=== PATIENT | female | born 1950 | race Caucasian/White ===

== ENCOUNTER 2021-12-12 22:20 | Inpatient (IN) | payer MEDICARE ==
[~2021-12-12] VITALS: Ht 172.7 cm; Wt 94.8 kg
--- NOTE | 2021-12-12 21:30 | NUR ---
RECEIVED PATIENT FROM [facility] DIRECT ADMISSION FOR ARU. PATIENT IS A/O X. UPON ARRIVAL TO THE FLOOR, PATIENT NOTED WITH TEMPERATURE OF 101.3 AND HEART RATE 118. PATIENT C/O DISCOMFORT TO RIGHT LEG, BUT DENIES THE NEEDS FOR PAIN MEDICATION AT THIS TIME. ORIENTED PATIENT TO ROOM AND CALL LIGHT. CALL LIGHT IN REACH. ALL NEEDS ATTENDED. WILL CONTINUE TO MONITOR AND ASSESS.
[2021-12-12 22:00] VITALS: BP 140/77
--- NOTE | 2021-12-12 22:00 | NUR ---
TALAT REEDER, ASSISTANT TO THE VICE PRESIDENT FINANCIAL SERVICES CONSULTANT. CALLED OUT TO NOTIFY ASSISTANT TO THE VICE PRESIDENT THAT WE ARE WAITING FOR THE ER CLERKS TO REGISTER PATIENT. INFORMED ASSISTANT TO THE VICE PRESIDENT THAT PATIENT HAS A FEVER AND INCREASED HEART RATE. RECEIVED VERBAL ORDERS, WAITING FOR REGISTRATION TO BE COMPLETE SO MEDS/ORDERS CAN BE INPUT INTO [facility]. ALL NEEDS ATTENDED.
--- NOTE | 2021-12-12 22:20 | NUR ---
PATIENT STILL NOT IN SYSTEM. CALLED OUT TO NURSING INFORMATION RESOURCES MANAGER TO INFORM THAT PATIENT IS NOT REGISTERED AND NEEDS MEDICATIONS.
[2021-12-12] MEDS ORDERED: TRIA1TAB5 PO (23:07)
[2021-12-12] MEDS ORDERED: DOCU-141 PO (23:07)
[2021-12-12] MEDS ORDERED: ENOX40DI SQ (23:07)
[2021-12-12] MEDS ORDERED: HYDR-3972 PO (23:07)
[2021-12-12] MEDS ORDERED: SENN-18 PO (23:07)
[2021-12-12] MEDS ORDERED: PANT40TA2 PO (23:07)
[2021-12-12] MEDS ORDERED: FLUT16SP BNOSTRILS (23:07)
[2021-12-12] MEDS ORDERED: CEPH500T PO (23:07)
[2021-12-12] MEDS ORDERED: MONT10TA22 PO (23:07)
[2021-12-12] MEDS ORDERED: IV NS 1000 ML 1,000 ML IV PRN (23:15)
[2021-12-12] MEDS ORDERED: CEFTRIAXONE 1 G in IV DEXTROSE 5% 50 ML IV SCH (23:15)
[2021-12-12] MEDS ORDERED: IV NORMAL SALINE 500 ML IV ONE (23:15)
[2021-12-12] MEDS ORDERED: HYDROMORPHONE HCL 2 MG TABLET PO PRN (23:30)
[2021-12-12] MEDS ORDERED: ACETAMINOPHEN 325 MG TABLET PO PRN (23:30)
--- NOTE | 2021-12-12 23:40 | NUR ---
RECEIVED ADMITTING ORDERS FROM TOA GILLILAND. RECEIVED ORDER FOR PATIENT TO HAVE NS 500 X1, ROCEPHIN 1GM AND THEN TO RECEIVE NS @100 CONTINUOUS. NO IV NOTED. PATIENT STUCK TWICE AND UNABLE TO INSERT IV HEPLOCK. PATIENT STATED SHE IS A VERY HARD STICK AND HAS HAD MID-LINES IN THE PAST. CALLED OUT TO TAO GILLILAND TO INFORM HER THAT WE ARE UNABLE TO START IV. RECEIVED ORDER TO ORDER MID-LINE IN AM AND THEN START FLUIDS. INFORMED APPLICATION TESTER THAT PATIENT IS DRINKING FLUIDS, COOLING MEASURES WERE PROVIDED AND TEMPERATURE IS TRENDING DOWN, 99.4. ALL NEEDS ATTENDED. WILL CONTINUE TO MONITOR AND ASSESS.
[2021-12-12 23:41] VITALS: BP 140/77
[2021-12-12] MEDS: HYDROCODONE/APAP 5-325MG TABLET PO PRN (23:50)
[2021-12-13 04:54] VITALS: BP 133/56
[2021-12-13] MEDS: HYDROCODONE/APAP 5-325MG TABLET PO PRN ×4 (05:32→20:04)
[2021-12-13] MEDS: PANTOPRAZOLE SODIUM 40 MG TABLET.DR PO SCH (06:50)
[2021-12-13 08:00] VITALS: BP 145/83
[2021-12-13] MEDS: TRIAMTERENE/HCTZ 75-50 MG TABLET PO SCH (08:46)
[2021-12-13] MEDS: FLUTICASONE PROP NASAL SPRAY 16 GM BOTTLE NS SCH (08:47)
[2021-12-13] MEDS: DOCUSATE SODIUM 100 MG CAPSULE PO SCH ×2 (08:47→16:17)
[2021-12-13] MEDS: ENOXAPARIN SODIUM 30 MG/0.3 ML DISP.SYRIN SQ SCH (08:48)
[2021-12-13] MEDS: CEFTRIAXONE 1 G in IV DEXTROSE 5% 50 ML IV SCH (08:51)
[2021-12-13] MEDS: IV NS 1000 ML 1,000 ML IV PRN (09:00)
[2021-12-13] MEDS ORDERED: Medication Not On Formulary EA (Cephalexin Monohydrate (Cephalexin) 1 TAB) PO SCH (09:00)
[2021-12-13 11:10] LABS: CREATININE 1.2 mg/dL (0.6-1.3)
[2021-12-13 11:13] LABS: HEMATOCRIT 22.4 % (31.2-41.9); MEAN CORPUSCULAR HEMOGLOBIN 32.6 uug (24.7-32.8); PLATELET COUNT (AUTO) 282 K/uL (179-408)
[2021-12-13 15:11] VITALS: BP 139/70
[2021-12-13] MEDS: MONTELUKAST SODIUM 10 MG TABLET PO SCH (20:04)
[2021-12-13] MEDS: SENNOSIDES 1 TABLET PO SCH (20:04)
[2021-12-13 20:09] VITALS: BP_SYST 107; BP_SYST 123; BP_DIAS 63; BP_DIAS 73
[2021-12-14] MEDS: HYDROCODONE/APAP 5-325MG TABLET PO PRN ×6 (00:06→21:05)
[2021-12-14] MEDS: IV NS 1000 ML 1,000 ML IV PRN (00:40)
[2021-12-14 04:50] VITALS: BP 136/67
[2021-12-14] MEDS: PANTOPRAZOLE SODIUM 40 MG TABLET.DR PO SCH (06:54)
[2021-12-14 08:25] VITALS: BP 152/72
[2021-12-14] MEDS: CEFTRIAXONE 1 G in IV DEXTROSE 5% 50 ML IV SCH (08:50)
[2021-12-14] MEDS: ENOXAPARIN SODIUM 30 MG/0.3 ML DISP.SYRIN SQ SCH (08:54)
[2021-12-14] MEDS: TRIAMTERENE/HCTZ 75-50 MG TABLET PO SCH (08:55)
[2021-12-14] MEDS: DOCUSATE SODIUM 100 MG CAPSULE PO SCH ×2 (08:55→16:09)
[2021-12-14] MEDS: FLUTICASONE PROP NASAL SPRAY 16 GM BOTTLE NS SCH (08:56)
[2021-12-14] MEDS ORDERED: POTASSIUM CHLORIDE 10 MEQ TAB.PRT.SR PO ONE (09:45)
[2021-12-14 11:44] LABS: CREATININE 1.1 mg/dL (0.6-1.3); POTASSIUM 3.2 mmol/L (3.5-5.1)
[2021-12-14] MEDS: SOD FERRIC GLUC COMPLX/SUCROSE 125 MG in IV NORMAL SALINE 100 ML IV SCH (13:55)
[2021-12-14 16:43] VITALS: BP 115/65
[2021-12-14 20:23] VITALS: BP 142/83
[2021-12-14] MEDS: NITROFURANTOIN/NITROFURAN MAC 100 MG CAPSULE PO SCH (20:58)
[2021-12-14] MEDS: SENNOSIDES 1 TABLET PO SCH (20:59)
[2021-12-14] MEDS: MONTELUKAST SODIUM 10 MG TABLET PO SCH (20:59)
[2021-12-15] MEDS: HYDROCODONE/APAP 5-325MG TABLET PO PRN ×2 (02:46→06:52)
[2021-12-15 04:11] VITALS: BP 115/71
[2021-12-15] MEDS: PANTOPRAZOLE SODIUM 40 MG TABLET.DR PO SCH (06:30)
[2021-12-15 06:57] LABS: HEMATOCRIT 22.7 % (31.2-41.9); MEAN CORPUSCULAR HEMOGLOBIN 32.3 uug (24.7-32.8); MEAN CORPUSCULAR VOLUME 96.2 fL (75.5-95.3); PLATELET COUNT (AUTO) 327 K/uL (179-408)
--- NOTE | 2021-12-15 07:25 | NUR ---
patient is alert, oriented x4, educated about constipation while taking narcotics, offered patient stronger laxative, patient refused stated this is not unusual for her, risks and benefits explained, patient still refused.will offer again and educate again
[2021-12-15 07:35] VITALS: BP 116/73
[2021-12-15] MEDS: NITROFURANTOIN/NITROFURAN MAC 100 MG CAPSULE PO SCH ×2 (08:38→20:56)
[2021-12-15] MEDS: DOCUSATE SODIUM 100 MG CAPSULE PO SCH ×2 (08:38→16:11)
[2021-12-15] MEDS: TRIAMTERENE/HCTZ 75-50 MG TABLET PO SCH (08:38)
[2021-12-15] MEDS: ENOXAPARIN SODIUM 30 MG/0.3 ML DISP.SYRIN SQ SCH (08:45)
[2021-12-15] MEDS: FLUTICASONE PROP NASAL SPRAY 16 GM BOTTLE NS SCH (08:47)
[2021-12-15] MEDS ORDERED: NALOXONE HCL 0.4 MG/ML AMPUL IV PRN (09:30)
[2021-12-15] MEDS: OXYCODONE HCL 10 MG TAB.SR.12H PO SCH ×2 (09:50→20:56)
[2021-12-15] MEDS: HYDROCODONE/APAP 10-325 MG TABLET PO PRN ×2 (13:05→19:08)
[2021-12-15] MEDS: SOD FERRIC GLUC COMPLX/SUCROSE 125 MG in IV NORMAL SALINE 100 ML IV SCH (13:44)
--- NOTE | 2021-12-15 14:16 | NUR ---
INDIVIDUALIZED PLAN OF CARE
[2021-12-15 15:45] VITALS: BP 108/72
--- NOTE | 2021-12-15 15:52 | NUR ---
INDIVIDUALIZED PLAN OF CARE
[2021-12-15] MEDS ORDERED: LOSA100T31 PO (18:55)
[2021-12-15 20:28] VITALS: BP 113/66
[2021-12-15] MEDS: SENNOSIDES 1 TABLET PO SCH (20:56)
[2021-12-15] MEDS: MONTELUKAST SODIUM 10 MG TABLET PO SCH (20:56)
[2021-12-16 04:16] VITALS: BP 135/72
[2021-12-16] MEDS: HYDROCODONE/APAP 10-325 MG TABLET PO PRN ×2 (05:14→13:59)
[2021-12-16] MEDS: PANTOPRAZOLE SODIUM 40 MG TABLET.DR PO SCH (06:31)
[2021-12-16 07:25] LABS: MEAN CORPUSCULAR HEMOGLOBIN 32.2 uug (24.7-32.8); MEAN CORPUSCULAR VOLUME 95.2 fL (75.5-95.3); PLATELET COUNT (AUTO) 368 K/uL (179-408)
[2021-12-16 07:34] VITALS: BP 133/70
[2021-12-16 07:42] LABS: CREATININE 0.9 mg/dL (0.6-1.3); MAGNESIUM 1.6 mg/dL (1.8-2.4); POTASSIUM 3.3 mmol/L (3.5-5.1)
[2021-12-16] MEDS: OXYCODONE HCL 10 MG TAB.SR.12H PO SCH ×2 (08:15→20:15)
[2021-12-16] MEDS: TRIAMTERENE/HCTZ 75-50 MG TABLET PO SCH (08:15)
[2021-12-16] MEDS: DOCUSATE SODIUM 100 MG CAPSULE PO SCH ×2 (08:15→16:11)
[2021-12-16] MEDS: MIRALAX 17 GM POWD.PACK PO SCH (08:15)
[2021-12-16] MEDS: NITROFURANTOIN/NITROFURAN MAC 100 MG CAPSULE PO SCH ×2 (08:15→20:15)
[2021-12-16] MEDS: LOSARTAN POTASSIUM 50 MG TABLET PO SCH (08:17)
[2021-12-16] MEDS: ENOXAPARIN SODIUM 30 MG/0.3 ML DISP.SYRIN SQ SCH (08:18)
[2021-12-16] MEDS: FLUTICASONE PROP NASAL SPRAY 16 GM BOTTLE NS SCH (08:42)
[2021-12-16] MEDS ORDERED: POTASSIUM CHLORIDE 20 MEQ TAB.PRT.SR PO ONE (11:00)
[2021-12-16] MEDS ORDERED: MAGNESIUM OXIDE 400 MG TABLET PO ONE (11:00)
[2021-12-16 13:15] LABS: BILIRUBIN,DIRECT 0.1 mg/dL (0.0-0.2); BILIRUBIN,TOTAL 0.5 mg/dL (0.2-1.0); TOTAL PROTEIN, SERUM 5.7 g/dL (6.4-8.2)
[2021-12-16 13:39] LABS: THYROID STIMULATING HORMONE 1.206 mIU/mL (0.358-3.740)
[2021-12-16] MEDS: SOD FERRIC GLUC COMPLX/SUCROSE 125 MG in IV NORMAL SALINE 100 ML IV SCH (13:43)
[2021-12-16 16:00] VITALS: BP 116/72
[2021-12-16 20:00] VITALS: BP 120/77
[2021-12-16] MEDS: MONTELUKAST SODIUM 10 MG TABLET PO SCH (20:15)
[2021-12-16] MEDS: SENNOSIDES 1 TABLET PO SCH (20:15)
[2021-12-17] MEDS: HYDROCODONE/APAP 10-325 MG TABLET PO PRN ×2 (01:25→12:54)
[2021-12-17 04:00] VITALS: BP 121/59
--- NOTE | 2021-12-17 05:10 | NUR ---
AAOx4 S/P right hip ORIF needs attended. Fall precautions maintained. Right hip dressing clean dry and intact. Pain meds given as schedulled. Continent of bowel and bladder, kept clean and dry. VSS.
[2021-12-17] MEDS: PANTOPRAZOLE SODIUM 40 MG TABLET.DR PO SCH (06:33)
[2021-12-17 07:10] LABS: MAGNESIUM 1.6 mg/dL (1.8-2.4); POTASSIUM 3.3 mmol/L (3.5-5.1)
[2021-12-17 08:05] VITALS: BP 106/50
[2021-12-17] MEDS: DOCUSATE SODIUM 100 MG CAPSULE PO SCH ×2 (08:32→17:10)
[2021-12-17] MEDS: NITROFURANTOIN/NITROFURAN MAC 100 MG CAPSULE PO SCH ×2 (08:32→20:35)
[2021-12-17] MEDS: LOSARTAN POTASSIUM 50 MG TABLET PO SCH (08:32)
[2021-12-17] MEDS: MIRALAX 17 GM POWD.PACK PO SCH (08:32)
[2021-12-17] MEDS: TRIAMTERENE/HCTZ 75-50 MG TABLET PO SCH (08:33)
[2021-12-17] MEDS: ENOXAPARIN SODIUM 30 MG/0.3 ML DISP.SYRIN SQ SCH (08:33)
[2021-12-17] MEDS: OXYCODONE HCL 10 MG TAB.SR.12H PO SCH ×2 (08:34→20:35)
[2021-12-17] MEDS: FLUTICASONE PROP NASAL SPRAY 16 GM BOTTLE NS SCH (08:36)
[2021-12-17] MEDS ORDERED: MAGNESIUM SULFATE/D5W 100 ML IV SCH (09:30)
[2021-12-17] MEDS ORDERED: POTASSIUM CHLORIDE 20 MEQ TAB.PRT.SR PO ONE (09:30)
[2021-12-17] MEDS: MAGNESIUM SULFATE/D5W 100 ML IV SCH ×2 (11:47→13:01)
[2021-12-17] MEDS: GLUCERNA SHAKE 237 ML CAN PO SCH (12:00)
[2021-12-17] MEDS ORDERED: LIDOCAINE HCL 1% 20 ML VIAL IJ PRN (13:30)
[2021-12-17] MEDS ORDERED: TRIAMCINOLONE ACETONIDE 40 MG/1 ML VIAL IM ONE (13:30)
--- NOTE | 2021-12-17 13:50 | NUR ---
KENALOG 40 IM, ADMINISTERED BY DOCTOR SUTHERLAND.
--- NOTE | 2021-12-17 14:13 | NUR ---
INTERDISCIPLINARY TEAM CONFERENCE
[2021-12-17] MEDS: SOD FERRIC GLUC COMPLX/SUCROSE 125 MG in IV NORMAL SALINE 100 ML IV SCH (14:49)
[2021-12-17 16:27] VITALS: BP 96/49
[2021-12-17 20:00] VITALS: BP 113/74
[2021-12-17] MEDS: MONTELUKAST SODIUM 10 MG TABLET PO SCH (20:35)
[2021-12-17] MEDS: SENNOSIDES 1 TABLET PO SCH (20:35)
[2021-12-18 04:00] VITALS: BP 126/68
--- NOTE | 2021-12-18 06:09 | NUR ---
Slept intermittently. Requested for purewick during the night. Noted to be drinking Premier protein brought by . Per patient, she has no appetite and food taste bitter. All needs attended. Due meds given. Safety precautions observed. Call light in reach. Left bed in lowest position. Will endorse to incoming shift.
[2021-12-18] MEDS: PANTOPRAZOLE SODIUM 40 MG TABLET.DR PO SCH (06:51)
[2021-12-18 07:11] LABS: CREATININE 1.1 mg/dL (0.6-1.3); MAGNESIUM 2.1 mg/dL (1.8-2.4); POTASSIUM 3.8 mmol/L (3.5-5.1)
[2021-12-18 08:07] VITALS: BP 144/75
[2021-12-18] MEDS: NITROFURANTOIN/NITROFURAN MAC 100 MG CAPSULE PO SCH ×2 (08:42→20:33)
[2021-12-18] MEDS: DOCUSATE SODIUM 100 MG CAPSULE PO SCH ×2 (08:42→16:51)
[2021-12-18] MEDS: FLUTICASONE PROP NASAL SPRAY 16 GM BOTTLE NS SCH (08:42)
[2021-12-18] MEDS: LOSARTAN POTASSIUM 50 MG TABLET PO SCH (08:42)
[2021-12-18] MEDS: MIRALAX 17 GM POWD.PACK PO SCH (08:43)
[2021-12-18] MEDS: GLUCERNA SHAKE 237 ML CAN PO SCH (08:43)
[2021-12-18] MEDS: TRIAMTERENE/HCTZ 75-50 MG TABLET PO SCH (08:43)
[2021-12-18] MEDS: OXYCODONE HCL 10 MG TAB.SR.12H PO SCH ×2 (08:43→20:34)
[2021-12-18] MEDS: ENOXAPARIN SODIUM 30 MG/0.3 ML DISP.SYRIN SQ SCH (08:50)
[2021-12-18] MEDS: HYDROCODONE/APAP 10-325 MG TABLET PO PRN (12:20)
[2021-12-18] MEDS: SOD FERRIC GLUC COMPLX/SUCROSE 125 MG in IV NORMAL SALINE 100 ML IV SCH (14:08)
[2021-12-18 15:22] VITALS: BP 101/42
[2021-12-18] MEDS: SENNOSIDES 1 TABLET PO SCH (20:33)
[2021-12-18] MEDS: MONTELUKAST SODIUM 10 MG TABLET PO SCH (20:34)
[2021-12-18 20:40] VITALS: BP 131/68
[2021-12-19] MEDS: HYDROCODONE/APAP 10-325 MG TABLET PO PRN ×2 (00:16→12:16)
[2021-12-19 04:25] VITALS: BP 135/72
[2021-12-19] MEDS: PANTOPRAZOLE SODIUM 40 MG TABLET.DR PO SCH (07:05)
[2021-12-19] MEDS: LOSARTAN POTASSIUM 50 MG TABLET PO SCH (08:49)
[2021-12-19] MEDS: FLUTICASONE PROP NASAL SPRAY 16 GM BOTTLE NS SCH (08:49)
[2021-12-19] MEDS: DOCUSATE SODIUM 100 MG CAPSULE PO SCH ×2 (08:49→16:46)
[2021-12-19] MEDS: TRIAMTERENE/HCTZ 75-50 MG TABLET PO SCH (08:49)
[2021-12-19] MEDS: NITROFURANTOIN/NITROFURAN MAC 100 MG CAPSULE PO SCH (08:49)
[2021-12-19] MEDS: MIRALAX 17 GM POWD.PACK PO SCH (08:53)
[2021-12-19] MEDS: OXYCODONE HCL 10 MG TAB.SR.12H PO SCH ×2 (08:53→21:10)
[2021-12-19] MEDS: ENOXAPARIN SODIUM 30 MG/0.3 ML DISP.SYRIN SQ SCH (09:06)
[2021-12-19] MEDS: GLUCERNA SHAKE 237 ML CAN PO SCH (09:12)
--- NOTE | 2021-12-19 19:44 | NUR ---
Received an order from Dr. Gonzalez for magnesium citrate PO x 1 dose. Order carried out.
[2021-12-19] MEDS ORDERED: MAGNESIUM CITRATE 296 ML BOTTLE PO ONE (19:45)
[2021-12-19 20:33] VITALS: BP 120/73
[2021-12-19] MEDS: MONTELUKAST SODIUM 10 MG TABLET PO SCH (21:16)
[2021-12-19] MEDS: SENNOSIDES 1 TABLET PO SCH (21:16)
[2021-12-20] MEDS: HYDROCODONE/APAP 10-325 MG TABLET PO PRN ×2 (03:02→14:10)
[2021-12-20 04:14] VITALS: BP 114/61
--- NOTE | 2021-12-20 06:26 | NUR ---
PT REQUESTED PAIN MEDICATION AT 9PM,PT REQUESTED PURE WICK AT 10PM TO SLEEP,PT WOKE AT 3AM REQUESTING PAIN MEDICATION ,PT IS ALERT AND ORIENTED X4,PT DIDNT WANT TO GET UP TO USE RESTROOM,
[2021-12-20 07:41] VITALS: BP 107/62
[2021-12-20] MEDS: OXYCODONE HCL 10 MG TAB.SR.12H PO SCH ×2 (08:02→20:17)
[2021-12-20] MEDS: MIRALAX 17 GM POWD.PACK PO SCH (08:03)
[2021-12-20] MEDS: LOSARTAN POTASSIUM 50 MG TABLET PO SCH (08:03)
[2021-12-20] MEDS: PANTOPRAZOLE SODIUM 40 MG TABLET.DR PO SCH (08:04)
[2021-12-20] MEDS: FLUTICASONE PROP NASAL SPRAY 16 GM BOTTLE NS SCH (08:04)
[2021-12-20] MEDS: DOCUSATE SODIUM 100 MG CAPSULE PO SCH ×2 (08:04→16:39)
[2021-12-20] MEDS: TRIAMTERENE/HCTZ 75-50 MG TABLET PO SCH (08:04)
[2021-12-20] MEDS: GLUCERNA SHAKE 237 ML CAN PO SCH (08:05)
[2021-12-20] MEDS: ENOXAPARIN SODIUM 30 MG/0.3 ML DISP.SYRIN SQ SCH (11:31)
[2021-12-20] MEDS: CYANOCOBALAMIN 1000 MCG/ML VIAL IM SCH (11:32)
[2021-12-20] MEDS: PROTEIN SUPPLEMENT (PROSTAT) 30 ML LIQUID PO SCH (11:32)
[2021-12-20 16:06] VITALS: BP 108/65
[2021-12-20] MEDS: SENNOSIDES 1 TABLET PO SCH (20:17)
[2021-12-20] MEDS: MONTELUKAST SODIUM 10 MG TABLET PO SCH (20:17)
[2021-12-20 20:35] VITALS: BP 120/80
--- NOTE | 2021-12-20 21:21 | NUR ---
patient is alert, oriented x4, no sob , no acute distress noted, noted with fast heart rate, dr zacarias made aware, with order to do EKG, order noted.
[2021-12-20] MEDS ORDERED: SWABABLE VALVE TRANSFER SET EA MC ONE (22:57)
[2021-12-20] MEDS ORDERED: IV NORMAL SALINE 250 ML IV ONE (22:57)
[2021-12-20] MEDS ORDERED: IOHEXOL 350 100 ML INFUS..BTL ONE (22:57)
[2021-12-20] MEDS ORDERED: diphenhydrAMINE 50 MG CAPSULE PO ONE (23:30)
[2021-12-20] MEDS ORDERED: DEXAMETHASONE SOD PHOSPHATE 4 MG INJ IV ONE (23:30)
--- NOTE | 2021-12-20 23:40 | NUR ---
patient left for CTA chest with tech
--- NOTE | 2021-12-20 23:44 | NUR ---
patient heart rate is in 130s, however patient is alert, oriented x4, denies any chest pain, no symptoms, no sob, respirations evern nonlabored, saturating at 94% room air. Dr zacarias aware, with order to do CTA of chest, order noted, patient stated she had itching from iodine in the past, Decadron and Benadryl given as ordered.
[2021-12-21] MEDS: HYDROCODONE/APAP 10-325 MG TABLET PO PRN (02:08)
[2021-12-21 04:26] VITALS: BP 121/68
--- NOTE | 2021-12-21 04:59 | NUR ---
patient heart rate is in 80s now, no distress noted, patient is alert, oriented x4, patient denied any chest pain, status post right leg ORIF, still noted with swelling and pitting edema to right lower extremity, no redness noted to right leg.
--- NOTE | 2021-12-21 05:40 | NUR ---
right hip incision dressing changed, mary lou are intact, dry, clean, no signs and symptoms of infection noted at incision site, no redness, no drainage. midline dressing changed at right upper arm, no redness noted.
--- NOTE | 2021-12-21 05:43 | NUR ---
patient stated it happened in the past as well, and occasionally does happen. she goes to ER whenever it happens but no one could figure out the cause or the trigger, patient stated she drinks one cup of wine at dinner every night.
[2021-12-21] MEDS: PANTOPRAZOLE SODIUM 40 MG TABLET.DR PO SCH (06:45)
[2021-12-21 07:07] LABS: HEMATOCRIT 27.8 % (31.2-41.9); MEAN CORPUSCULAR HEMOGLOBIN 32.8 uug (24.7-32.8); MEAN CORPUSCULAR VOLUME 97.9 fL (75.5-95.3); PLATELET COUNT (AUTO) 470 K/uL (179-408)
[2021-12-21 07:28] LABS: BILIRUBIN,TOTAL 0.6 mg/dL (0.2-1.0); CREATININE 1.1 mg/dL (0.6-1.3); TOTAL PROTEIN, SERUM 6.4 g/dL (6.4-8.2)
[2021-12-21 07:38] VITALS: BP 107/68
[2021-12-21] MEDS: OXYCODONE HCL 10 MG TAB.SR.12H PO SCH ×2 (07:52→21:19)
[2021-12-21] MEDS: CYANOCOBALAMIN 1000 MCG/ML VIAL IM SCH (07:53)
[2021-12-21] MEDS: FLUTICASONE PROP NASAL SPRAY 16 GM BOTTLE NS SCH (07:53)
[2021-12-21] MEDS: MIRALAX 17 GM POWD.PACK PO SCH (07:55)
[2021-12-21] MEDS: MULTIVITAMINS,THERAPEUTIC TABLET PO SCH (07:56)
[2021-12-21] MEDS: ENOXAPARIN SODIUM 30 MG/0.3 ML DISP.SYRIN SQ SCH (07:56)
[2021-12-21] MEDS: PROTEIN SUPPLEMENT (PROSTAT) 30 ML LIQUID PO SCH (07:57)
[2021-12-21] MEDS: DOCUSATE SODIUM 100 MG CAPSULE PO SCH ×2 (07:57→15:45)
[2021-12-21] MEDS: GLUCERNA SHAKE 237 ML CAN PO SCH (08:07)
[2021-12-21] MEDS: LOSARTAN POTASSIUM 50 MG TABLET PO SCH (08:24)
[2021-12-21] MEDS: HYDROCHLOROTHIAZIDE 25 MG TABLET PO SCH (08:24)
[2021-12-21] MEDS ORDERED: HYDROCHLOROTHIAZIDE 25 MG TABLET PO SCH (09:00)
[2021-12-21] MEDS ORDERED: LOSARTAN POTASSIUM 50 MG TABLET PO SCH (09:00)
[2021-12-21 16:14] VITALS: BP 116/66
[2021-12-21] MEDS: SENNOSIDES 1 TABLET PO SCH (21:20)
[2021-12-21] MEDS: MONTELUKAST SODIUM 10 MG TABLET PO SCH (21:20)
[2021-12-22] MEDS: HYDROCODONE/APAP 10-325 MG TABLET PO PRN ×2 (04:53→14:21)
--- NOTE | 2021-12-22 06:16 | NUR ---
pt slept well overnight,BP was within normal limits ,heart rate within normal limits,pt sat in wheelchair couple hours.No event to report
[2021-12-22] MEDS: PANTOPRAZOLE SODIUM 40 MG TABLET.DR PO SCH ×2 (07:03→14:49)
[2021-12-22 07:32] VITALS: BP 106/48
[2021-12-22] MEDS: HYDROCHLOROTHIAZIDE 25 MG TABLET PO SCH (09:00)
[2021-12-22] MEDS: LOSARTAN POTASSIUM 50 MG TABLET PO SCH (09:00)
[2021-12-22] MEDS: MULTIVITAMINS,THERAPEUTIC TABLET PO SCH (09:06)
[2021-12-22] MEDS: DOCUSATE SODIUM 100 MG CAPSULE PO SCH ×2 (09:06→17:19)
[2021-12-22] MEDS: OXYCODONE HCL 10 MG TAB.SR.12H PO SCH ×2 (09:07→20:49)
[2021-12-22] MEDS: CYANOCOBALAMIN 1000 MCG/ML VIAL IM SCH (09:08)
[2021-12-22] MEDS: PROTEIN SUPPLEMENT (PROSTAT) 30 ML LIQUID PO SCH (09:09)
[2021-12-22] MEDS: FLUTICASONE PROP NASAL SPRAY 16 GM BOTTLE NS SCH (09:09)
[2021-12-22] MEDS: GLUCERNA SHAKE 237 ML CAN PO SCH (09:10)
[2021-12-22] MEDS: MIRALAX 17 GM POWD.PACK PO SCH (09:11)
[2021-12-22] MEDS: ENOXAPARIN SODIUM 30 MG/0.3 ML DISP.SYRIN SQ SCH (09:12)
[2021-12-22 16:00] VITALS: BP 121/49
[2021-12-22 20:00] VITALS: BP 114/65
[2021-12-22] MEDS: SENNOSIDES 1 TABLET PO SCH (20:50)
[2021-12-22] MEDS: MONTELUKAST SODIUM 10 MG TABLET PO SCH (20:50)
[2021-12-23] MEDS: HYDROCODONE/APAP 10-325 MG TABLET PO PRN ×2 (01:21→13:09)
[2021-12-23 04:00] VITALS: BP 120/60
[2021-12-23] MEDS: PANTOPRAZOLE SODIUM 40 MG TABLET.DR PO SCH (06:28)
[2021-12-23 07:32] VITALS: BP 108/57
[2021-12-23] MEDS: LOSARTAN POTASSIUM 50 MG TABLET PO SCH (09:00)
[2021-12-23] MEDS: MIRALAX 17 GM POWD.PACK PO SCH (09:46)
[2021-12-23] MEDS: OXYCODONE HCL 10 MG TAB.SR.12H PO SCH ×2 (09:46→20:34)
[2021-12-23] MEDS: MULTIVITAMINS,THERAPEUTIC TABLET PO SCH (09:46)
[2021-12-23] MEDS: CYANOCOBALAMIN 1000 MCG/ML VIAL IM SCH (09:47)
[2021-12-23] MEDS: GLUCERNA SHAKE 237 ML CAN PO SCH (09:53)
[2021-12-23] MEDS: PROTEIN SUPPLEMENT (PROSTAT) 30 ML LIQUID PO SCH (09:54)
[2021-12-23] MEDS: DOCUSATE SODIUM 100 MG CAPSULE PO SCH ×2 (10:38→17:31)
[2021-12-23] MEDS: ENOXAPARIN SODIUM 30 MG/0.3 ML DISP.SYRIN SQ SCH (10:39)
[2021-12-23] MEDS: HYDROCHLOROTHIAZIDE 25 MG TABLET PO SCH (10:42)
[2021-12-23] MEDS: FLUTICASONE PROP NASAL SPRAY 16 GM BOTTLE NS SCH (10:45)
--- NOTE | 2021-12-23 11:11 | NUR ---
0715-Patient in bed, awake, A/ox4, no respiratory distress noted. Patient denies pain. Verbalizes needs and follows directions. Safety precautions in place; assisted to the bathroom/FWW. Voided freely, no C/O bladder discomfort. Assisted back to bed, encouraged to use call light for help every time needed.
--- NOTE | 2021-12-23 15:29 | NUR ---
1300-Patient alert and oriented, tolerated (rehab) therapy well and able to actively participate in therapy. Medicated Routinely and PRN for pain as per her pain level needs and as ordered by MD. Able to use FWW and ambulates with one person's assist. Safety measures in place, routine rounds and frequent visual checks done. Assist as needed.
--- NOTE | 2021-12-23 15:50 | NUR ---
[place] given 12/21/21@1450 for pain /10. after 1 hour pain rating 2/10
[2021-12-23 16:00] VITALS: BP 101/48
--- NOTE | 2021-12-23 18:22 | NUR ---
Patient in bed at this time, has a visitor at bedside. Appears comfortable, no respiratory distress, denies pain. Eating and drinking well. No ELENA from her baseline. All needs attended well and met.
[2021-12-23 20:00] VITALS: BP 140/72
[2021-12-23] MEDS: MONTELUKAST SODIUM 10 MG TABLET PO SCH (20:35)
[2021-12-23] MEDS: SENNOSIDES 1 TABLET PO SCH (21:28)
[2021-12-24] MEDS: PANTOPRAZOLE SODIUM 40 MG TABLET.DR PO SCH (06:06)
[2021-12-24] MEDS: HYDROCODONE/APAP 10-325 MG TABLET PO PRN ×3 (06:07→19:52)
[2021-12-24 07:32] VITALS: BP 117/59
[2021-12-24] MEDS: CYANOCOBALAMIN 1000 MCG/ML VIAL IM SCH (08:48)
[2021-12-24] MEDS: DOCUSATE SODIUM 100 MG CAPSULE PO SCH ×2 (08:49→16:53)
[2021-12-24] MEDS: OXYCODONE HCL 10 MG TAB.SR.12H PO SCH ×2 (08:49→21:18)
[2021-12-24] MEDS: LOSARTAN POTASSIUM 50 MG TABLET PO SCH (08:49)
[2021-12-24] MEDS: MULTIVITAMINS,THERAPEUTIC TABLET PO SCH (08:49)
[2021-12-24] MEDS: MIRALAX 17 GM POWD.PACK PO SCH ×2 (08:50→08:59)
[2021-12-24] MEDS: GLUCERNA SHAKE 237 ML CAN PO SCH (08:50)
[2021-12-24] MEDS: HYDROCHLOROTHIAZIDE 25 MG TABLET PO SCH (08:50)
[2021-12-24] MEDS: FLUTICASONE PROP NASAL SPRAY 16 GM BOTTLE NS SCH (08:51)
[2021-12-24] MEDS: PROTEIN SUPPLEMENT (PROSTAT) 30 ML LIQUID PO SCH (08:52)
[2021-12-24] MEDS: ENOXAPARIN SODIUM 30 MG/0.3 ML DISP.SYRIN SQ SCH (08:52)
--- NOTE | 2021-12-24 13:34 | NUR ---
INTERDISCIPLINARY TEAM CONFERENCE
[2021-12-24 16:00] VITALS: BP 121/66
[2021-12-24 20:00] VITALS: BP 160/73
[2021-12-24] MEDS: SENNOSIDES 1 TABLET PO SCH (20:14)
[2021-12-24] MEDS: MONTELUKAST SODIUM 10 MG TABLET PO SCH (20:14)
--- NOTE | 2021-12-25 00:52 | NUR ---
Patient in bed at this time, Appears comfortable, no sob, no acute distress noted, call light with in easy reach.
[2021-12-25] MEDS: HYDROCODONE/APAP 10-325 MG TABLET PO PRN ×2 (01:32→13:26)
[2021-12-25 04:00] VITALS: BP 116/60
[2021-12-25] MEDS: PANTOPRAZOLE SODIUM 40 MG TABLET.DR PO SCH (06:30)
[2021-12-25 08:00] VITALS: BP 116/63
[2021-12-25] MEDS: OXYCODONE HCL 10 MG TAB.SR.12H PO SCH ×2 (08:08→20:24)
[2021-12-25] MEDS: MULTIVITAMINS,THERAPEUTIC TABLET PO SCH (08:08)
[2021-12-25] MEDS: FLUTICASONE PROP NASAL SPRAY 16 GM BOTTLE NS SCH (08:09)
[2021-12-25] MEDS: CYANOCOBALAMIN 1000 MCG/ML VIAL IM SCH (08:09)
[2021-12-25] MEDS: PROTEIN SUPPLEMENT (PROSTAT) 30 ML LIQUID PO SCH (08:09)
[2021-12-25] MEDS: DOCUSATE SODIUM 100 MG CAPSULE PO SCH ×2 (08:12→16:24)
[2021-12-25] MEDS: MIRALAX 17 GM POWD.PACK PO SCH (08:12)
[2021-12-25] MEDS: GLUCERNA SHAKE 237 ML CAN PO SCH (08:18)
[2021-12-25] MEDS: ENOXAPARIN SODIUM 30 MG/0.3 ML DISP.SYRIN SQ SCH (08:18)
[2021-12-25] MEDS: LOSARTAN POTASSIUM 50 MG TABLET PO SCH (08:19)
[2021-12-25] MEDS: HYDROCHLOROTHIAZIDE 25 MG TABLET PO SCH (08:19)
[2021-12-25 12:32] VITALS: BP 128/68
[2021-12-25 16:17] VITALS: BP 115/98
[2021-12-25 20:00] VITALS: BP 113/61
[2021-12-25] MEDS: MONTELUKAST SODIUM 10 MG TABLET PO SCH (20:23)
[2021-12-25] MEDS: SENNOSIDES 1 TABLET PO SCH (20:23)
[2021-12-26] MEDS: HYDROCODONE/APAP 10-325 MG TABLET PO PRN ×2 (02:55→13:15)
[2021-12-26 04:00] VITALS: BP 117/63
[2021-12-26] MEDS: PANTOPRAZOLE SODIUM 40 MG TABLET.DR PO SCH (06:52)
[2021-12-26 07:46] VITALS: BP 124/61
--- NOTE | 2021-12-26 07:53 | NUR ---
PT SLEPT DURING GAVE PAIN MEDICATION 0255 PT TOLERATED DENIES PAIN AFTER ONE HOUR FALL AND SAFETY MAINTAINED WILL ENDORSE TO AM NURSE. NO ADVERSE REACTION FROM AM MEDICATION. MONITORED FOR FALL AND SAFETY THROUGHOUT SHIFT.
[2021-12-26] MEDS: PROTEIN SUPPLEMENT (PROSTAT) 30 ML LIQUID PO SCH (08:31)
[2021-12-26] MEDS: CYANOCOBALAMIN 1000 MCG/ML VIAL IM SCH (08:32)
[2021-12-26] MEDS: MIRALAX 17 GM POWD.PACK PO SCH (08:33)
[2021-12-26] MEDS: HYDROCHLOROTHIAZIDE 25 MG TABLET PO SCH (08:33)
[2021-12-26] MEDS: DOCUSATE SODIUM 100 MG CAPSULE PO SCH ×2 (08:34→17:00)
[2021-12-26] MEDS: LOSARTAN POTASSIUM 50 MG TABLET PO SCH (08:34)
[2021-12-26] MEDS: MULTIVITAMINS,THERAPEUTIC TABLET PO SCH (08:34)
[2021-12-26] MEDS: ENOXAPARIN SODIUM 30 MG/0.3 ML DISP.SYRIN SQ SCH (08:36)
[2021-12-26] MEDS: OXYCODONE HCL 10 MG TAB.SR.12H PO SCH ×2 (08:37→20:30)
[2021-12-26] MEDS: FLUTICASONE PROP NASAL SPRAY 16 GM BOTTLE NS SCH (08:38)
[2021-12-26] MEDS: GLUCERNA SHAKE 237 ML CAN PO SCH (08:38)
--- NOTE | 2021-12-26 16:18 | NUR ---
Found patient awake in hospital bed in supine position with head of bed 45 degrees karlene. Pt complained of pain. Pain level 8/10, [place] was given with relief when reassessed. She is alert and oriented x4, verbally responsive. Respiration are even unlabored. Breathing normal on room air. Pt has a right upper midline. Fall precaution maintained. Patient is comfortable at this time with no acute distress. BM recorded today.
--- NOTE | 2021-12-26 16:44 | NUR ---
left msg with radioligy to ring a copy of the right hip cd for d/c tomorrow
[2021-12-26] MEDS: SENNOSIDES 1 TABLET PO SCH (20:31)
[2021-12-26] MEDS: MONTELUKAST SODIUM 10 MG TABLET PO SCH (20:31)
[2021-12-26 20:50] VITALS: BP 137/65
[2021-12-27] MEDS: HYDROCODONE/APAP 10-325 MG TABLET PO PRN ×2 (01:09→12:41)
[2021-12-27 04:44] VITALS: BP 98/50
[2021-12-27] MEDS: OXYCODONE HCL 10 MG TAB.SR.12H PO SCH (08:20)
[2021-12-27] MEDS: MULTIVITAMINS,THERAPEUTIC TABLET PO SCH (08:21)
[2021-12-27] MEDS: DOCUSATE SODIUM 100 MG CAPSULE PO SCH (08:21)
[2021-12-27] MEDS: HYDROCHLOROTHIAZIDE 25 MG TABLET PO SCH (08:21)
[2021-12-27] MEDS: MIRALAX 17 GM POWD.PACK PO SCH (08:21)
[2021-12-27] MEDS: LOSARTAN POTASSIUM 50 MG TABLET PO SCH (08:21)
[2021-12-27] MEDS: FLUTICASONE PROP NASAL SPRAY 16 GM BOTTLE NS SCH (08:21)
[2021-12-27] MEDS: ENOXAPARIN SODIUM 30 MG/0.3 ML DISP.SYRIN SQ SCH (08:22)
[2021-12-27] MEDS: PROTEIN SUPPLEMENT (PROSTAT) 30 ML LIQUID PO SCH (08:23)
[2021-12-27] MEDS: GLUCERNA SHAKE 237 ML CAN PO SCH (08:23)
[2021-12-27 08:27] VITALS: BP 120/51
--- NOTE | 2021-12-27 14:35 | NUR ---
D/C TO HOME WITH HOME HEALTH. PICKED HER UP. D/C INSTRUCTIONS GIVEN VERBALIZED UNDERSTANDING. PAIN MEDS CALLED INTO PHARMACY BY . W/C TO CAR BY PHYSICAL THERAPY
[2022-01-02] MEDS ORDERED: CYANOCOBALAMIN 1000 MCG/ML VIAL IM SCH (09:00)
== END 2021-12-27 14:30 | disposition home health service (06) | DRG 559 ==
LOC: MEDSURG3 22:20
PROVIDERS: ADMIT Physical Medicine & Rehabilitation Pain Medicine; ATTEND Physical Medicine & Rehabilitation Pain Medicine
PROC: 05HD33Z Insertion of Infusion Device into Right Cephalic Vein, Percutaneous Approach (ICD-10-PCS; principal; 2021-12-13)
DX: S72.141D Displaced intertrochanteric fracture of right femur, subsequent encounter for closed fracture with routine healing (principal); E43 Unspecified severe protein-calorie malnutrition; N17.0 Acute kidney failure with tubular necrosis; N39.0 Urinary tract infection, site not specified; Z96.649 Presence of unspecified artificial hip joint; Z68.30 Body mass index [BMI] 30.0-30.9, adult; W01.0XXD Fall on same level from slipping, tripping and stumbling without subsequent striking against object, subsequent encounter; E66.9 Obesity, unspecified; B96.20 Unspecified Escherichia coli [E. coli] as the cause of diseases classified elsewhere; M19.90 Unspecified osteoarthritis, unspecified site; D63.8 Anemia in other chronic diseases classified elsewhere; I10 Essential (primary) hypertension; D69.6 Thrombocytopenia, unspecified; Z96.653 Presence of artificial knee joint, bilateral; M75.91 Shoulder lesion, unspecified, right shoulder; E53.8 Deficiency of other specified B group vitamins; E87.6 Hypokalemia; Z68.31 Body mass index [BMI] 31.0-31.9, adult; Z88.8 Allergy status to other drugs, medicaments and biological substances; R00.0 Tachycardia, unspecified
CPT/HCPCS: 36415; 71045; 71275; 73502; 82652; 83550; 83735; 84100; 84443; 84484; 85025; 93005; J0696; J1100; J1650; J2916; J3301; J3420; J3475; J3490; J3535; J7040; Q0163; Q9967